=== PATIENT | female | born 1970 | race Hispanic/Latino ===

== ENCOUNTER 2019-09-04 07:35 | Outpatient (CLI) | payer OTHER ==
--- NOTE | 2019-09-04 07:55 | RAD ---
Radiograph right hip 2 views: HISTORY: 49-year-old female with nontraumatic acute right hip pain FINDINGS: Femoral head contour maintained. No subcapital osteophytes. Minimal central-medial joint space narrow ing. Superior joint space maintained. No fracture or dislocation. No destructive osseous lesion. Degenerative changes at right SI joint noted. IMPRESSION: No major pathology of right hip joint identified
--- NOTE | 2019-09-04 08:00 | RAD ---
XR Femur Rt 2 View STANDARD HISTORY: Acute pain in the right eye COMPARISON: None. FINDINGS: The right femur is intact.
== END 2019-09-04 07:36 | disposition home or self-care (01) ==
LOC: MADRAD 07:35
PROVIDERS: ATTEND Family Medicine
DX: M25.551 Pain in right hip (principal)